=== PATIENT | female | born 1985 | race Caucasian/White ===

== ENCOUNTER 2024-06-28 20:41 | Emergency (ER) | payer MEDICARE, SELFPAY ==
[2024-06-28 20:47] VITALS: BP 117/80; PULSE 96; TEMP 36.7; O2SAT 99; BMI 19.5
--- NOTE | 2024-06-28 20:54 | XR_ITS ---
The [address] [address] Patient Name: REAGAN VILLASEÑOR MRN: [id number] date: 1985 Sex: F Assigned Patient Location: ED.MAIN Current Patient Location: ED.MAIN Accession/Order Number: [id number] Exam Date: 06/28/2024 21:04 Report Date: 06/28/2024 22:42 At the request of: INEZ CAICEDO Procedure: XR foot RT min 3V XR foot RT min 3V, 06/28/2024 8:04 PM CDT: History: injury. . Comparison: None. Technique: 3 views right foot Findings/Impression: There is no fracture or malalignment. The soft tissues are normal. Electronically authenticated by: RICARDO GUIDO Date: 06/28/2024 22:42
--- NOTE | 2024-06-28 21:05 | ED.LOWEXI1 ---
Documented by User: [email or web address] Walters 06/28/24 21:57 HPI HPI - Extremity Injury (Lower) General Chief Complaint: Extremity Injury, Lower Stated Complaint: Lower Extremity Injury Time Seen by Provider: 06/28/24 20:47 Source: patient Mode of arrival: walk-in History of Present Illness HPI Narrative: Patient is a 38-year-old female who presents to the emergency department for the evaluation of injury to the right foot. Patient states 1 week ago she dropped a full tumbler of water on her third and fourth toes. She complains of most of her pain in the fourth toe with some radiation to the foot. She states she just got back from vacation, she had been jones taping the toes but now that she is back from vacation she has noticed an increase in pain. She states that she was doing moderate walking but nothing too strenuous. No numbness or tingling. No color change noted to the foot. She is not concerned for . No medications prior to arrival. Related Data Previous Rx's ?Medication ?Instructions ?Recorded ketorolac 10 mg tablet 10 mg PO TID PRN pain #10 tabs 06/28/24 Allergies Allergy/AdvReac Type Severity Reaction Status Date / Time acetaminophen Allergy Severe Rash Verified 06/28/24 20:55 [From Darvocet-N] albuterol Allergy Severe Palpitation Verified 06/28/24 20:55 s diphenhydramine Allergy Severe Rash Verified 06/28/24 20:55 [From Benadryl] Penicillins Allergy Severe Hives Verified 06/28/24 20:55 propoxyphene Allergy Severe Rash Verified 06/28/24 20:55 [From Darvocet-N] Sulfa (Sulfonamide Allergy Severe Hives Verified 06/28/24 20:55 Antibiotics) Opioid HPI Opioid Management Most Recent Pain and Opioid Data: Last Pain Scale 5 06/28/24 20:55 Review of Systems ROS Constitutional Denies: fever or chills Ears, nose, mouth, and throat Denies: throat pain or nasal congestion Respiratory Denies: shortness of breath Gastrointestinal Denies: nausea or vomiting Musculoskeletal Reports: extremity pain; Denies: back pain, neck pain, extremity swelling, joint pain or limited range of motion Integumentary/Breast Denies: rash Hematologic/Lymphatic Denies: easy bruising or easy bleeding Exam Narrative Exam Narrative: Gen.: Awake, alert, in no distress Head: Normocephalic, atraumatic ENT: Moist mucous membranes Respiratory: No respiratory distress Extremities: Moves extremities equally, no appreciable swelling, ecchymosis or obvious deformity of the right foot. Tenderness of the right fourth toe, 2+ right DP pulse. No bony tenderness of the fifth metatarsal or right ankle. Psych: Normal mood and affect Neuro: No focal neuro deficit Skin: Warm, dry, intact Constitutional Vital Signs, click to edit/add: Last Vital Signs Temp 98.1 F 06/28/24 20:47 Pulse 96 H 06/28/24 20:47 Resp 16 06/28/24 20:47 BP 117/80 06/28/24 20:47 Pulse Ox 99 06/28/24 20:47 O2 Del Method Room Air 06/28/24 20:47 Course Vital Signs Vital signs: Vital Signs Temperature 98.1 F 06/28/24 20:47 Pulse Rate 96 H 06/28/24 20:47 Respiratory Rate 16 06/28/24 20:47 Blood Pressure 117/80 06/28/24 20:47 Pulse Oximetry 99 06/28/24 20:47 Oxygen Delivery Method Room Air 06/28/24 20:47 Temperature 98.1 F 06/28/24 20:47 Pulse Rate 96 H 06/28/24 20:47 Respiratory Rate 16 06/28/24 20:47 Blood Pressure 117/80 06/28/24 20:47 Pulse Oximetry 99 06/28/24 20:47 Oxygen Delivery Method Room Air 06/28/24 20:47 MDM - Extremity Injury (Lower) MDM Narrative Medical decision making narrative: 2156: X-rays obtained, final read is pending. Patient given Toradol. Anticipate discharge home with jones tape and postop shoe. Patient is stable at time of her care to attending physician. SHARED APC VISIT, PHYSICIAN ATTESTATION: [id number] I performed a substantive part of the MDM during the patient?s E/M visit. I personally evaluated and examined the patient. I personally made or approved the documented management plan and acknowledge its risk of complications. Medical Records Attestation: I reviewed the patient's medical records. Discharge Plan Discharge Stand Alone Forms: Portal Instructions Chief Complaint: Extremity Injury, Lower Clinical Impression: Acute pain of right foot Patient Disposition: Home, Self-Care Time of Disposition Decision: 21:55 Condition: Good Prescriptions / Home Meds: New ketorolac 10 mg tablet 10 mg PO TID PRN (Reason: pain) Qty: 10 0RF Print Language: Estonian Instructions: Contusion in Adults (ED) Referrals: Physician,Non-Staff, [Primary Care Provider] - 1 week John Mondragon DPM [Physician] - As soon as possible Documented by User: Markus Ferrell MD 06/28/24 23:02 HPI HPI - Extremity Injury (Lower) General Chief Complaint: Extremity Injury, Lower Stated Complaint: Lower Extremity Injury Time Seen by Provider: 06/28/24 20:47 Related Data Previous Rx's ?Medication ?Instructions ?Recorded ketorolac 10 mg tablet 10 mg PO TID PRN pain #10 tabs 06/28/24 Allergies Allergy/AdvReac Type Severity Reaction Status Date / Time acetaminophen Allergy Severe Rash Verified 06/28/24 20:55 [From Darvocet-N] albuterol Allergy Severe Palpitation Verified 06/28/24 20:55 s diphenhydramine Allergy Severe Rash Verified 06/28/24 20:55 [From Benadryl] Penicillins Allergy Severe Hives Verified 06/28/24 20:55 propoxyphene Allergy Severe Rash Verified 06/28/24 20:55 [From Darvocet-N] Sulfa (Sulfonamide Allergy Severe Hives Verified 06/28/24 20:55 Antibiotics) Opioid HPI Opioid Management Most Recent Pain and Opioid Data: Last Pain Scale 5 06/28/24 20:55 Exam Constitutional Vital Signs, click to edit/add: Last Vital Signs Temp 98.1 F 06/28/24 20:47 Pulse 96 H 06/28/24 20:47 Resp 16 06/28/24 20:47 BP 117/80 06/28/24 20:47 Pulse Ox 99 06/28/24 20:47 O2 Del Method Room Air 06/28/24 20:47 Course Vital Signs Vital signs: Vital Signs Temperature 98.1 F 06/28/24 20:47 Pulse Rate 96 H 06/28/24 20:47 Respiratory Rate 16 06/28/24 20:47 Blood Pressure 117/80 06/28/24 20:47 Pulse Oximetry 99 06/28/24 20:47 Oxygen Delivery Method Room Air 06/28/24 20:47 Temperature 98.1 F 06/28/24 20:47 Pulse Rate 96 H 06/28/24 20:47 Respiratory Rate 16 06/28/24 20:47 Blood Pressure 117/80 06/28/24 20:47 Pulse Oximetry 99 06/28/24 20:47 Oxygen Delivery Method Room Air 06/28/24 20:47 MDM - Extremity Injury (Lower) MDM Narrative Medical decision making narrative: 2156: X-rays obtained, final read is pending. Patient given Toradol. Anticipate discharge home with jones tape and postop shoe. Patient is stable at time of her care to attending physician. xray report retuned and patient discharged SHARED APC VISIT, PHYSICIAN ATTESTATION: [id number] I performed a substantive part of the MDM during the patient?s E/M visit. I personally evaluated and examined the patient. I personally made or approved the documented management plan and acknowledge its risk of complications. Discharge Plan Discharge Stand Alone Forms: Portal Instructions Chief Complaint: Extremity Injury, Lower Clinical Impression: Acute pain of right foot Patient Disposition: Home, Self-Care Time of Disposition Decision: 21:55 Condition: Good Prescriptions / Home Meds: New ketorolac 10 mg tablet 10 mg PO TID PRN (Reason: pain) Qty: 10 0RF Print Language: Estonian Instructions: Contusion in Adults (ED) Referrals: Physician,Non-Staff, MD [Primary Care Provider] - 1 week John Mondragon DPM [Physician] - As soon as possible
[2024-06-28] MEDS: KETOROLAC TROMETHAMINE 10 MG TABLET PO (21:45)
== END 2024-06-28 23:11 | disposition home or self-care (01) ==
PROVIDERS: Emergency Provider Internal Medicine
DX: M79.671 Pain in right foot (principal)
CPT/HCPCS: 73630; 99284